=== PATIENT | male | born 1990 | race Caucasian/White ===

== ENCOUNTER 2016-05-19 23:56 | Emergency (ER) | payer OTHER ==
[2016-05-20] MEDS ORDERED: KETOROLAC TROMETHAMINE 60 MG/2 ML SDV IM ONE (01:34)
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
[2016-05-20 02:32] VITALS: BP 140/89
== END 2016-05-20 02:33 | disposition home or self-care (01) ==
LOC: ER 23:56
DX: M79.1 Myalgia (principal); M54.9 Dorsalgia, unspecified; V89.2XXA Person injured in unspecified motor-vehicle accident, traffic, initial encounter; Z88.0 Allergy status to penicillin
CPT/HCPCS: 99283; 96372; J1885

== ENCOUNTER 2018-01-29 17:58 | Emergency (ER) | payer BC, OTHER ==
[2018-01-29 18:10] VITALS: BP 146/87
--- NOTE | 2018-01-29 18:14 | ER Document Report ---
ED Medical Screen (RME) - General Chief Complaint: Groin Pain Stated Complaint: LOW RIGHT SIDE/GROIN PAIN Time Seen by Provider: 01/29/18 18:11 Mode of Arrival: Ambulatory Information source: Patient TRAVEL OUTSIDE OF THE [place] IN LAST 30 DAYS: No - HPI Patient complains to provider of: R groin pain Onset: This morning - Pt had R groin pain this am and feltt a "bulge" in this area. Went to earlier today and they sent him here for evaluation of R inguinal hernia. - Related Data Allergies/Adverse Reactions: amoxicillin [Amoxicillin] Allergy (Verified 03/20/14 21:36) Past Medical History Renal/ Medical History: Denies: Hx Peritoneal Dialysis Past Surgical History: Reports: Hx Tonsillectomy - Immunizations Immunizations up to date: Yes Hx Diphtheria, Pertussis, Tetanus Vaccination: Yes Physical Exam - Vital signs Vitals: Temp Pulse Resp BP Pulse Ox 99.2 F 65 16 146/87 H 100 01/29/18 18:07 01/29/18 18:07 01/29/18 18:07 01/29/18 18:07 01/29/18 18:07 Course - Vital Signs Vital signs: Temp Pulse Resp BP Pulse Ox 99.2 F 65 16 146/87 H 100 01/29/18 18:07 01/29/18 18:07 01/29/18 18:07 01/29/18 18:07 01/29/18 18:07
[2018-01-29 18:44] LABS: ABSOLUTE BASOPHILS # (AUTO) 0.1 10^3/uL (0.0-0.2); ABSOLUTE EOSINOPHILS # (AUTO) 0.1 10^3/uL (0.0-0.6); ABSOLUTE LYMPHOCYTES (AUTO) 1.4 10^3/uL (0.5-4.7); ABSOLUTE MONOCYTES (AUTO) 0.8 10^3/uL (0.1-1.4); ABSOLUTE NEUT (AUTO) 9.2 10^3/uL (1.7-8.2); BASOPHILS % (AUTO) 0.6 % (0-2); EOSINOPHILS % (AUTO) 0.5 % (0-6); HEMATOCRIT 46.1 % (37.9-51.0); HEMOGLOBIN 15.8 g/dL (13.5-17.0); LYMPHOCYTES % (AUTO) 12.2 % (13-45); MEAN CORPUSCULAR HEMOGLOBIN 29.9 pg (27.0-33.4); MEAN CORPUSCULAR HGB CONC 34.2 g/dL (32.0-36.0); MEAN CORPUSCULAR VOLUME 87 fl (80-97); MONOCYTES % (AUTO) 7.1 % (3-13); PLATELET COUNT 336 10^3/uL (150-450); RED BLOOD COUNT 5.28 10^6/uL (4.35-5.55); SEGMENTED NEUTROPHILS % (AUTO) 79.6 % (42-78); TOTAL CELLS COUNTED % (AUTO) 100 %; WHITE BLOOD COUNT 11.5 10^3/uL (4.0-10.5)
[2018-01-29 18:47] LABS: APPEARANCE,URINE CLEAR; BILIRUBIN,URINE NEGATIVE (NEGATIVE); COLOR,URINE YELLOW; GLUCOSE, URINE NEGATIVE (NEGATIVE); KETONES,URINE NEGATIVE (NEGATIVE); LEUKOCYTE ESTERASE,URINE NEGATIVE (NEGATIVE); NITRITE,URINE NEGATIVE (NEGATIVE); PROTEIN,URINE NEGATIVE (NEGATIVE); URINE SPECIFIC GRAVITY 1.013
[2018-01-29 18:56] LABS: ALANINE AMINOTRANSFERASE 20 U/L (21-72); ALBUMIN 4.8 g/dL (3.5-5.0); ALKALINE PHOSPHATASE 97 U/L (38-126); ANION GAP 11 (5-19); ASPARTATE AMINO TRANSFERASE 20 U/L (17-59); BILIRUBIN,DIRECT 0.2 mg/dL (0.0-0.4); BILIRUBIN,TOTAL 0.6 mg/dL (0.2-1.3); BLOOD UREA NITROGEN 12 mg/dL (7-20); CALCIUM 10.3 mg/dL (8.4-10.2); CARBON DIOXIDE 25 mmol/L (22-30); CHLORIDE 104 mmol/L (98-107); GLUCOSE 96 mg/dL (75-110); POTASSIUM 4.5 mmol/L (3.6-5.0); SODIUM 140.4 mmol/L (137-145); TOTAL PROTEIN 7.5 g/dL (6.3-8.2)
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
== END 2018-01-29 19:27 | disposition home or self-care (01) ==
LOC: ER 17:58
DX: R10.31 Right lower quadrant pain (principal); F17.200 Nicotine dependence, unspecified, uncomplicated; I10 Essential (primary) hypertension
CPT/HCPCS: 36415; 80053; 81001; 85025; 99283

== ENCOUNTER 2018-09-14 19:42 | Emergency (ER) | payer BC ==
--- NOTE | 2018-09-14 20:07 | ER Document Report ---
HPI - HPI Patient complains to provider of: Left-sided rib pain Time Seen by Provider: 09/14/18 19:58 Onset: Other Onset/Duration: Persistent Quality of pain: Achy Severity: Moderate Pain Level: 3 Context: This 28-year-old male presents emergency department with left-sided rib pain. Reports he was playing basketball couple days ago and was tackled. He reports pain since that time. He reports the area is tender to palpate and hurts when h e lays on that side. Also complains of pain with deep cough/ breathing and certain movements. Denies fever vomiting diarrhea. Denies past medical history of injury to those ribs. 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 Lives with: Family Family History: Reviewed & Not Pertinent, DM Patient has suicidal ideation: No Patient has homicidal ideation: No - Past Medical History Cardiac Medical History: Reports: Hx Hypertension Renal/ Medical History: Denies: Hx Peritoneal Dialysis Past Surgical History: Reports: Hx Adenoidectomy, Hx Tonsillectomy - Immunizations Immunizations up to date: Yes Hx Diphtheria, Pertussis, Tetanus Vaccination: Yes Vertical Provider Document - CONSTITUTIONAL Agree With Documented VS: Yes Exam Limitations: No Limitations General Appearance: WD/WN, No Apparent Distress - INFECTION CONTROL TRAVEL OUTSIDE OF THE [place] IN LAST 30 DAYS: No - HEENT HEENT: Atraumatic, Normocephalic - NECK Neck: Normal Inspection, Supple. negative: Lymphadenopathy-Left, Lymphadenopathy-Right - RESPIRATORY Respiratory: Breath Sounds Normal, No Respiratory Distress, Other - LEFT ANTERIOR RIBS TTP, NO ECCHYMOSIS, NO erythema slight pain with palpation, chest wall rise and fall symmetric - CARDIOVASCULAR Cardiovascular: Regular Rate, Regular Rhythm - GI/ABDOMEN Gastrointestinal: Abdomen Soft, Abdomen Non-Tender - MUSCULOSKELETAL/EXTREMETIES Musculoskeletal/Extremeties: MAEW, FROM - NEURO Level of Consciousness: Awake, Alert, Appropriate Motor/Sensory: No Motor Deficit - DERM Integumentary: Warm, Dry Adult Front & Back Diagram: 1 - Patient reports area tender to palpate tender when he lays on that side and tender with certain movements. Course - Re-evaluation Re-evalutation: 09/14/18 20:05 This 28-year-old male presents with left foot pain after being tackled while playing basketball. No obvious deformity noted, chest rise and fall symmetric. No respiratory distress. Respiratory rate even unlabored. Denies fever vomiting diarrhea. Denies past medical history of injury to the ribs. 09/14/18 20:56 Ribs w/Chest X-Ray 09/14/18 20:02 IMPRESSION: 1. No acute pulmonary process identified. No other fractures identified. Patient instructed on negative x-ray instructed to cough deep breathe take Motrin for the pain follow-up with the primary care provider he verbalized understanding to all instructions Dictation of this chart was performed using voice recognition software; therefore, there may be some unintended grammatical errors. - Vital Signs Vital signs: Temp Pulse Resp BP Pulse Ox 98.6 F 59 L 18 143/86 H 100 09/14/18 19:50 09/14/18 19:50 09/14/18 19:50 09/14/18 19:50 09/14/18 19:50 Discharge - Discharge Clinical Impression: Rib pain on left side Condition: Stable Disposition: HOME, SELF-CARE Instructions: Use of [id number]-[id number]-Iludtay Ibuprofen ([facility]), Rib Injuries and Fractures ([facility]) Additional Instructions: *You have been evaluated for rib pain *Your xray was negative for an acute rib fracture *Take ibuprofen as indicated *Cough and deep breathe at least once an hour *Monitor your temperature *Follow up with a primary care provider within one week for recheck *Return to ED for worsening condition, changes, needs, increased cough, fever, difficulty breathing Forms: Return to Work Referrals: ROLANDO JERONIMO MD [NO LOCAL MD] - Follow up in 1 week
--- NOTE | 2018-09-14 20:55 | RADIOLOGY REPORT (SQ) ---
EXAM DESCRIPTION: XR RIBS UNILATERAL WITH CHEST COMPLETED DATE/TME: 09/14/2018 20:02 CLINICAL HISTORY: PAIN, TACKLED PLAYING BASKETBALL COMPARISON: 01/26/2013 FINDINGS: Single frontal view of the chest and 2 views of the left ribs.. Cardiomediastinal silhouette: Normal size and contour. Lungs: No consolidation, pneumothorax, or pleural effusion. Upper abdomen: No abnormality identified. Bones: No acute osseous abnormality. No left rib fractures identified. IMPRESSION: 1. No acute pulmonary process identified. No other fractures identified.
[2018-09-14 21:01] VITALS: BP 128/70
== END 2018-09-14 21:02 | disposition home or self-care (01) ==
LOC: ER 19:42
DX: R07.81 Pleurodynia (principal); R05 Cough; W51.XXXA Accidental striking against or bumped into by another person, initial encounter; Y93.67 Activity, basketball; I10 Essential (primary) hypertension
CPT/HCPCS: 99283

== ENCOUNTER 2019-03-28 11:38 | Emergency (ER) | payer BC ==
[2019-03-28] MEDS ORDERED: KETOROLAC TROMETHAMINE 60 MG/2 ML SDV IM ONE (12:39)
--- NOTE | 2019-03-28 12:40 | ER Document Report ---
HPI - HPI Time Seen by Provider: 03/28/19 12:39 Context: 29-year-old male presents with right upper neck/back pain that started approximately 2 hours ago. Patient was attempting to lift a couch due to him moving. Patient states he put an icy hot patch on there that seemed to help however now he is having pain with movement of his neck to the right and flexing it. Patient denies any fevers. - REPRODUCTIVE Reproductive: DENIES: : Past Medical History - General Information source: Patient - Social History Smoking Status: Unknown if Ever Smoked Family History: Reviewed & Not Pertinent, DM - Past Medical History Cardiac Medical History: Reports: Hx Hypertension Renal/ Medical History: Denies: Hx Peritoneal Dialysis Past Surgical History: Reports: Hx Adenoidectomy, Hx Tonsillectomy - Immunizations Immunizations up to date: Yes Hx Diphtheria, Pertussis, Tetanus Vaccination: Yes Vertical Provider Document - CONSTITUTIONAL Agree With Documented VS: Yes Notes: GENERAL: Well-appearing, well-nourished and in no acute distress. HEAD: Atraumatic, normocephalic. EYES: Extraocular movements intact, sclera anicteric, conjunctiva are normal. NECK: Normal range of motion, pain with flexion and right side rotation. Muscle strain/spasm noted to right paraspinal muscles. No cervical spine tenderness. Supple without lymphadenopathy or JVD. EXTREMITIES: Normal range of motion, no pitting or edema. No clubbing or cyanosis. NEUROLOGICAL: Cranial nerves II through XII grossly intact. Normal speech, normal gait. PSYCH: Normal mood, normal affect. SKIN: Warm, Dry, normal turgor, no rashes or lesions noted. - INFECTION CONTROL TRAVEL OUTSIDE OF THE [place] IN LAST 30 DAYS: No Course - Re-evaluation Re-evalutation: 03/28/19 Exam consistent with muscle spasm/muscle strain. Pt is able to move neck however has pain upon flexion and rotation. Afebrile. Pt given toradol shot and prescriptions for ibuprofen and Flexeril with sedation warning. Pt has no C spine tenderness to warrant further imaging. Discussed all this with pt. Return precautions given and follow up with PCP. Pt voices understanding and agrees with plan of care. - Vital Signs Vital signs: Temp Pulse Resp BP Pulse Ox 98.9 F 58 L 18 134/66 H 99 03/28/19 12:30 03/28/19 12:30 03/28/19 12:30 03/28/19 12:30 03/28/19 12:30 Discharge - Discharge Clinical Impression: Muscle spasm Cervical muscle strain Qualifiers: Encounter type: initial encounter Qualified Code(s): S16.1XXA - Strain of muscle, fascia and tendon at neck level, initial encounter Condition: Stable Disposition: HOME, SELF-CARE Instructions: Muscle Relaxers ([facility]), Muscle Strain ([facility]) Additional Instructions: Your exam is consistent with muscle spasm/muscle strain. Please take ibuprofen as prescribed. Please take Flexeril as prescribed. Please note it may make you drowsy so do not drink or drive while taking. Follow-up with your primary care doctor in 3 to 5 days. May use heating pad to area, 10 minutes on 10 minutes off, do not place directly on skin. Return immediately to ER if you start having any worsening symptoms, including inability to turn your neck, fever, chest pain, shortness of breath, difficulty urinating/defecating, numbness, weakness, or any other symptoms that are concerning to you. Prescriptions: Cyclobenzaprine HCl [Flexeril 10 mg Tablet] 10 mg PO TIDP PRN #15 tab PRN Reason: Ibuprofen [Motrin 800 mg Tablet] 800 mg PO Q8H PRN #30 tab PRN Reason: Referrals: STEVE PADILLA PA [Primary Care Provider] - Follow up in 3-5 days
[2019-03-28 14:14] VITALS: BP 112/64
== END 2019-03-28 14:13 | disposition home or self-care (01) ==
LOC: ER 11:38
DX: S16.1XXA Strain of muscle, fascia and tendon at neck level, initial encounter (principal); X50.0XXA Overexertion from strenuous movement or load, initial encounter; Y93.E6 Activity, residential relocation; M62.838 Other muscle spasm; I10 Essential (primary) hypertension
CPT/HCPCS: 96372; 99283; J1885